=== PATIENT | female | born 1995 | race Caucasian/White ===

== ENCOUNTER → 2017-11-29 | Outpatient (CLI) | payer OTHER ==
[2017-11-29 16:08] LABS: FREE T4 1.04 NG/DL (0.76-1.46); THYROID STIMULATING HORMONE 0.651 uIU/ML (0.358-3.740)
[2017-12-07 14:15] LABS: CHROMOGRANIN A 2 nmol/L (0-5); DQ2(DQ1A 0501/0505,DQB1 02XX) Positive (.); DQ8(DQA1 03XX, DQB1 0302) Negative (.)
[2017-12-07 14:15] LABS: GASTRIN 27 pg/mL (0-115)
== END ==
LOC: M LAB 14:38
DX: K58.1 Irritable bowel syndrome with constipation (principal)
CPT/HCPCS: 84443

== ENCOUNTER 2018-03-07 22:42 | Emergency (ER) | payer OTHER ==
[2018-03-07] MEDS: ONDANSETRON 4 MG ORAL DISINTEGRATING TAB (Q0162 PER 1MG) PO (23:30)
[2018-03-07] MEDS: LORazepam 0.5 MG TAB PO (23:30)
== END 2018-03-08 00:36 | disposition home or self-care (01) ==
LOC: M ED 03-08 00:36
DX: R45.89 Other symptoms and signs involving emotional state (principal); T43.205A Adverse effect of unspecified antidepressants, initial encounter; F41.9 Anxiety disorder, unspecified
CPT/HCPCS: Q0162

== ENCOUNTER 2018-11-13 20:54 | Inpatient (IN) | payer OTHER ==
[2018-11-13] VITALS (9 sets, daily range): BP systolic 107–137; BP diastolic 58–73
[~2018-11-13] VITALS: Ht 162.6 cm; Wt 61.4 kg
[~2018-11-13 20:54] MED LIST: ATIV1TAB10 PO; LINZ290C; MECL-68 PO; PRENTAB45 PO; VENL150C43; ZOFR4TAB14 PO
[2018-11-13] MEDS ORDERED: LACTATED RINGER'S 1000 ML IV STA (21:28)
--- NOTE | 2018-11-13 21:45 | HPEPDOC ---
Obstetrical History & Physical General Date of Admission History of Present Illness 23 yo at 40+1 weeks gestation by 9+0 week US on [id number] presents to L&D with regular, painful contractions that have been worsening this evening. She had her membranes stripped in the office today. She denies any vaginal bleeding or leakage of fluid. She endorses excellent movement. complicated by significant iron deficiency anemia that have required IV iron transfusions. Chief Complaint: Contractions, term Information Provided By: Patient Age: 23 : 2 Term: 1 Pre-term: 0 Abortions: 0 Livin Care Care: Good Care Dating Final EDC: Nov 12, 2018 Final EDC for Daily Update: Nov 12, 2018 Final EDC by: 1st trimester (US) (9+0 week US on [id number] set KARIME of [id number]) 1st Trimester Date: Apr 09, 2018 Antepartum Course Diagnos(e)s Iron deficiency anemia requiring IV iron transfusions Migraines Anxiety Irritable bowel syndrome Past Medical History Past Obstetrical History : Past Obstetrical History: Multigravida ( in 2014 with pelvis proven to 7lbs 4oz) Type of Delivery: Spontaneous Vaginal Del. 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 Past Medical History Medical History Iron deficiency anemia Migraines Anxiety Irritable bowel syndrome Surgical History: Denies/None Family History Significant Family History: No pertinent family hx Social History Marital Status: Family situation: Spouse/partner home Psychosocial History: Anxiety * Smoker: non-smoker Alcohol: Denies Drugs: denies Imunizations Tdap status: current Influenza Status: current Allergies Coded Allergies: No Known Allergies (Unverified , 03/07/18) Medications Scheduled Vit No.129/Iron/Folic ( One Daily Tablet) 1 Tab Tab, 1 TAB PO DAILY Physical Examination Physical Examination GENERAL: Alert and oriented times three. ABDOMEN: Gravid and non-tender to touch. FETUS: Is vertex (VTX) by sterile vaginal examination (SVE) EXTREMITIES: No edema. Vital Signs/I&O Vital Signs Date Time Temp Pulse Resp B/P (MAP) Pulse Ox O2 Delivery O2 Flow Rate FiO2 11/13/18 21:17 98.9 88 116/63 (80) Laboratory Data Urine Culture: No Growth Pertinent Laboratoy Data Blood Type: A+ RBC Antibody Screen: Negative HIV: Negative Hepatitis B: Negative Hepatitis C: Unknown Rapid Plasma Reagin: Nonreactive Rubella: Immune Varicella: Nonreactive Chlamydia/Gonorrhea: Negative Group B Streptococcus: Negative Quad Screen Test: Unknown Cystic Fibrosis: Negative Glucose Tolerance Test: 108 Anatomy Ultrasound Placenta Location: Posterior Normal Anatomy: No (Initial bilateral pelviectasis resolved on repeat imaging. Persisent EIF.) Placenta Previa: No Steroid Therapy Steroid Therapy: No Vaginal Examination Dilation: 4 cm Effacement: 80% Station: -2 Cervical Consistency: Soft Cervical Position: Middle Presentation: Cephalic presentation Position: Vertex (occiput) Assessment Heart Rate (FHR): 125 Variability: Moderate Accelerations: Positive Decelerations: None Tocometer Contractions: Yes Frequency: regular Duration: greater than 60 seconds Strength: palpated as moderate Assessment/Plan Assessment 23 yo at 40+1 weeks gestation presented in labor. Plan Admit to L&D for expectant management of labor. Will augment as clinically indicated. Apply IV fluids. GBS negative. Patient may have epidural when and if desired. Clear liquid diet. Candidate for intermittent monitoring as desired as long as status remains reassuring. Anticipate . DO ZEYAD Post CHRISTOPHER J. DO Nov 13, 2018 21:45
[2018-11-13 21:58] LABS: BASO % 0.2 % (0.0-1.0); EOS % 0.2 % (0.0-3.0); HEMATOCRIT 32.1 % (36.0-47.0); HEMOGLOBIN 11.2 g/dl (12.0-15.5); LYMPH # 2.1 10^3/uL (1.5-6.5); LYMPH % 17.6 % (24.0-44.0); MEAN CORPUSCULAR HEMOGLOBIN 31.8 pg (27.0-33.0); MEAN CORPUSCULAR HGB CONC 34.9 g/dl (32.0-36.5); MEAN CORPUSCULAR VOLUME 91.2 fl (80.0-96.0); MONO # 0.9 10^3/uL (0.0-0.8); MONO % 7.5 % (0.0-5.0); NEUTROPHILS # 8.7 10^3/uL (1.8-7.7); NEUTROPHILS % 73.7 % (36.0-66.0); PLATELET COUNT, AUTOMATED 168 10^3/uL (150-450); RED BLOOD COUNT 3.52 10^6/uL (4.00-5.40); WHITE BLOOD COUNT 11.7 10^3/uL (4.0-10.0)
[2018-11-13] MEDS ORDERED: FENTANYL 2MCG/ML ROPIVACAINE 0.2% IN 0.9% NACL 100ML IVBAG As Ordered ONE (23:14)
[2018-11-13] MEDS ORDERED: EPIDURAL/PCA KEYS XX PRN (23:50)
[2018-11-13] MEDS ORDERED: REFRIGERATOR IV KEYS XX PRN (23:50)
[2018-11-13] MEDS ORDERED: ONDANSETRON 4MG/2ML VIAL (J2405) IV PRN (23:50)
[2018-11-13] MEDS ORDERED: NALOXONE INJ 0.4 MG/1 ML VIAL (J2310) IV PRN (23:50)
[2018-11-13] MEDS: FENTANYL/ROPIVACAINE/NACL BAG 100 ML EPIDURAL SCH (23:50)
[2018-11-13] MEDS ORDERED: ePHEDrine SULFATE 25 MG/5 ML(5MG/ML) SYRINGE IV PRN (23:50)
[2018-11-13] MEDS ORDERED: EPIDURAL COMMENT XX SCH (23:50)
[2018-11-13] MEDS ORDERED: LACTATED RINGER'S 1000 ML IV PRN (23:50)
[2018-11-13] MEDS ORDERED: diphenhydrAMINE INJ 50MG/ML VIAL (J1200) IV PRN (23:50)
[2018-11-14] VITALS (21 sets, daily range): BP systolic 91–138; BP diastolic 48–81
[2018-11-14] MEDS ORDERED: ONDANSETRON 4MG/2ML VIAL (J2405) As Ordered ONE (00:33)
--- NOTE | 2018-11-14 03:44 | IPNPDOC ---
Text Note Date of Service The patient was seen on 11/14/18. NOTE Called RN for assessment of progress. Patient comfortable with epidural in place. FHR review: Cat I with moderate variability, +accels, no decels. Contractions Q2mins and palpating strong. Patient soo quite well on her own power. Will continue expectant management. At next exam will consider AROM. DO Rachid VS,Carlo, I+O VS, Jonnye, I+O Laboratory Tests 11/13/18 21:46 Red Blood Count 3.52 L, Mean Corpuscular Volume 91.2, Mean Corpuscular Hemoglobin 31.8, Mean Corpuscular Hemoglobin Concent 34.9, Red Cell Distribution Width 13.2, Neutrophils (%) (Auto) 73.7 H, Lymphocytes (%) (Auto) 17.6 L, Monocytes (%) (Auto) 7.5 H, Eosinophils (%) (Auto) 0.2, Basophils (%) (Auto) 0.2, Neutrophils # (Auto) 8.7 H, Lymphocytes # (Auto) 2.1, Monocytes # (Auto) 0.9 H, Eosinophils # (Auto) 0.0, Basophils # (Auto) 0.0 Vital Signs Date Time Temp Pulse Resp B/P (MAP) Pulse Ox O2 Delivery O2 Flow Rate FiO2 11/14/18 00:47 98.7 100 118/63 (81) ALMA JEFFERS DO Nov 14, 2018 03:44
[2018-11-14] MEDS: FENTANYL/ROPIVACAINE/NACL BAG 100 ML EPIDURAL SCH (06:07)
--- NOTE | 2018-11-14 06:32 | IPNPDOC ---
Text Note Date of Service The patient was seen on 11/14/18. NOTE Presented to room to assess progress. Ms. Quiñones continues to be comfortable with her epidural. Cervix: 9/C/0. AROM performed productive of meconium stained fluid. FHR remains Cat I. Patient progressing well. I anticipate beginning of 2nd stage shortly. DO Rachid VS,Carlo, I+O VS, Carlo, I+O Laboratory Tests 11/13/18 21:46 Red Blood Count 3.52 L, Mean Corpuscular Volume 91.2, Mean Corpuscular Hemoglobin 31.8, Mean Corpuscular Hemoglobin Concent 34.9, Red Cell Distribution Width 13.2, Neutrophils (%) (Auto) 73.7 H, Lymphocytes (%) (Auto) 17.6 L, Monocytes (%) (Auto) 7.5 H, Eosinophils (%) (Auto) 0.2, Basophils (%) (Auto) 0.2, Neutrophils # (Auto) 8.7 H, Lymphocytes # (Auto) 2.1, Monocytes # (Auto) 0.9 H, Eosinophils # (Auto) 0.0, Basophils # (Auto) 0.0 Vital Signs Date Time Temp Pulse Resp B/P (MAP) Pulse Ox O2 Delivery O2 Flow Rate FiO2 11/14/18 05:20 98.7 82 103/52 (69) ALMA JEFFERS DO Nov 14, 2018 06:32
[2018-11-14] MEDS ORDERED: OXYTOCIN 30 UNITS IN 0.9% NaCl 500ML IV BAG (J2590) As Ordered ONE (06:37)
--- NOTE | 2018-11-14 07:43 | NUR ---
0730 am evaluation active labor srom [id number] am meconium light epidural effective pelvic rot zero station no visible meconium reviewed past 4 th degree tear would like to avoid repeat 4 th degree discussed pushing plan
[2018-11-14] MEDS ORDERED: OXYTOCIN DRIP 30 UNITS in APPROPRIATE DILUENT 1 EA IV SCH (08:36)
[2018-11-14 08:44] LABS: CORD GAS ABE A -1.8; CORD GAS HCO3 A 25.2 MEQ/L; CORD GAS O2 SAT A 26.9 %; CORD GAS PCO2 A 51.5 mmHg; CORD GAS PH A 7.307 UNITS; CORD GAS PO2 A 14.9 mmHg; CORD GAS SBC A 21.3 MEQ/L; CORD GAS TCO2 A 26.8 MEQ/L
[2018-11-14 08:46] LABS: CORD GAS ABE V -1.8; CORD GAS O2 SAT V 72.3 %; CORD GAS PCO2 V 39.2 mmHg; CORD GAS PH V 7.386 UNITS; CORD GAS PO2 V 33.6 mmHg; CORD GAS SBC V 22.4 MEQ/L; CORD GAS TCO2 V 24.2 MEQ/L
[2018-11-14] MEDS ORDERED: METHYLERGONOVINE MALEATE 0.2 MG TAB PO PRN (09:00)
[2018-11-14] MEDS ORDERED: IBUPROFEN 800 MG TAB PO PRN (09:00)
[2018-11-14] MEDS ORDERED: ANUSOL HC CREAM 30GM TOP PRN (09:00)
[2018-11-14] MEDS ORDERED: ACETAMINOPHEN TAB 650MG DOSE (2X325MG) PO PRN (09:00)
[2018-11-14] MEDS ORDERED: ACETAMINOPHEN 500 MG TAB PO PRN (09:00)
[2018-11-14] MEDS ORDERED: PRENATAL VITAMINS CHEWABLE TABLET PO SCH (09:00)
[2018-11-14] MEDS ORDERED: MEASLES,MUMPS,RUBELLA VACCINE INJ (MMR-II) (90707) SC SCH (09:00)
[2018-11-14] MEDS ORDERED: MOM 30ML SUSPENSION UDC PO PRN (09:00)
[2018-11-14] MEDS ORDERED: DIBUCAINE 1% OINTMENT 30GM TOP PRN (09:00)
[2018-11-14] MEDS ORDERED: DOCUSATE SODIUM 100 MG CAP PO PRN (09:00)
[2018-11-14] MEDS ORDERED: RHOGAM 300 MCG (1500 IU) INJ (J2790) IM SCH (09:00)
[2018-11-14] MEDS ORDERED: OXYTOCIN INJ 10 UNITS/ML VIAL (J2590) IV ONE (09:00)
[2018-11-14] MEDS: IBUPROFEN 600 MG TAB PO PRN (09:19)
--- NOTE | 2018-11-14 18:01 | DN ---
DATE: 11/14/2018 This lady is a 23-year-old 2 admitted in spontaneous labor, had a spontaneous rupture of membranes 0630 a.m. Meconium stained liquid, thin. With epidural in place, two pushes, delivered a live male weighing 7 pounds, 11 ounces, 3460 grams, scores of 9 and 9 at one and five minutes respectively. Placenta delivered spontaneously thereafter. Meconium-stained membranes. Multiple calcifications were noted. Three-vessel cord, membranes and tissues intact. Perineum was intact. Sphincter was intact. Anterior, posterior and lateral robles were good. The uterus contracted well down on Pitocin. The patient and baby tolerated the procedure well. Arterial and venous pH were ordered.
[2018-11-15] MEDS: IBUPROFEN 600 MG TAB PO PRN ×2 (02:05→08:23)
[2018-11-15 06:12] VITALS: BP 105/62
[2018-11-15 07:15] LABS: HEMATOCRIT 34.8 % (36.0-47.0); HEMOGLOBIN 11.7 g/dl (12.0-15.5); MEAN CORPUSCULAR HEMOGLOBIN 31.2 pg (27.0-33.0); MEAN CORPUSCULAR HGB CONC 33.6 g/dl (32.0-36.5); MEAN CORPUSCULAR VOLUME 92.8 fl (80.0-96.0); PLATELET COUNT, AUTOMATED 160 10^3/uL (150-450); RED BLOOD COUNT 3.75 10^6/uL (4.00-5.40); WHITE BLOOD COUNT 12.3 10^3/uL (4.0-10.0)
[2018-11-15] MEDS ORDERED: DIBU10OI TOP (07:22)
[2018-11-15] MEDS ORDERED: MOM30SS2 PO (07:22)
[2018-11-15] MEDS ORDERED: COLA100C5 PO (07:22)
[2018-11-15] MEDS ORDERED: PRENCHW PO (07:22)
[2018-11-15] MEDS ORDERED: ACET-683 PO (07:22)
[2018-11-15] MEDS ORDERED: PROC1CRE5 TOP (07:22)
[2018-11-15] MEDS ORDERED: IBUP80TA PO (07:22)
--- NOTE | 2018-11-15 19:24 | DSES ---
DATE OF ADMISSION: 11/13/2018 DATE OF DISCHARGE: 11/15/2018 This a 23-year-old 2, now para 2, admitted in contractions at 41 weeks gestation, spontaneous vaginal delivery with epidural in place, male. 7 pounds 10 ounces, 3460 grams, scores of 9 and 9 at one and five minutes respectively. Arterial pH 7.30, base excess -1.8, venous pH 7.38, base excess -1.8. Admitting hemoglobin was 11.2, hematocrit 32.1 and platelets 168. Discharge hemoglobin 11.7, hematocrit 34.8 and platelets 160. We discussed phlebitis, cystitis, mastitis, endometritis, cellulitis, diet, exercise, pain management, perineal, breast and wound care. Her ongoing issues are anemia, irritable bowel syndrome and migraines. She was dispensed with medications including MiraLax and Colace for her irritable bowel syndrome. 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 In summary, we have a term gestation, delivered a live male infant. Her discharge blood pressure was 105/62, respirations 18, pulse 80, temperature 98.2.
== END 2018-11-15 12:40 | disposition home or self-care (01) | DRG 807 ==
LOC: M LDO 20:54 → M LDI 21:37 → M OBS 11-14 11:09
PROVIDERS: ADMIT Obstetrics & Gynecology; ATTEND Obstetrics & Gynecology
PROC: 10E0XZZ Delivery of Products of Conception, External Approach (ICD-10-PCS; principal; 2018-11-14)
DX: O99.02 Anemia complicating childbirth (principal); Z37.0 Single live birth; O48.0 Post-term pregnancy; Z3A.40 40 weeks gestation of pregnancy; D50.9 Iron deficiency anemia, unspecified; O99.62 Diseases of the digestive system complicating childbirth; K58.9 Irritable bowel syndrome, unspecified

== ENCOUNTER 2019-05-14 14:22 | Emergency (ER) | payer OTHER ==
[~2019-05-14] VITALS: Ht 162.6 cm; Wt 52.0 kg
[~2019-05-14 14:22] MED LIST changes: +ACET-683 PO; +COLA100C5 PO; +DIBU10OI TOP; +IBUP80TA PO; -MECL-68 PO; +MECL1TAB31 PO; +MOM30SS2 PO; +PRENCHW PO; +PROC1CRE5 TOP
[2019-05-14] MEDS ORDERED: OLAN5TAB PO (14:33)
[2019-05-14 15:48] LABS: HEMATOCRIT 40.7 % (36.0-47.0); HEMOGLOBIN 13.4 g/dl (12.0-15.5); MEAN CORPUSCULAR HEMOGLOBIN 29.3 pg (27.0-33.0); MEAN CORPUSCULAR HGB CONC 32.9 g/dl (32.0-36.5); MEAN CORPUSCULAR VOLUME 88.9 fl (80.0-96.0); PLATELET COUNT, AUTOMATED 204 10^3/uL (150-450); RED BLOOD COUNT 4.58 10^6/uL (4.00-5.40); WHITE BLOOD COUNT 7.9 10^3/uL (4.0-10.0)
[2019-05-14 16:02] LABS: AMPHETAMINES LEVEL URINE NEGATIVE (NEGATIVE); BARBITURATES URINE NEGATIVE (NEGATIVE); BENZODIAZEPINES URINE NEGATIVE (NEGATIVE); CANNABINOIDS URINE NEGATIVE (NEGATIVE); COCAINE METABOLITE URINE NEGATIVE (NEGATIVE); METHADONE URINE NEGATIVE (NEGATIVE); OPIATES URINE NEGATIVE (NEGATIVE); PHENCYCLIDINE URINE NEGATIVE (NEGATIVE)
[2019-05-14 16:19] LABS: ACETAMINOPHEN LEVEL < 2.0 UG/ML (10.0-30.0); ALBUMIN 4.6 GM/DL (3.2-5.2); ALT/SGPT 22 U/L (12-78); BILIRUBIN,DIRECT 0.1 MG/DL (0.0-0.2); BILIRUBIN,TOTAL 0.4 MG/DL (0.2-1.0); BLOOD UREA NITROGEN 18 MG/DL (7-18); CALCIUM LEVEL 8.5 MG/DL (8.5-10.1); CARBON DIOXIDE LEVEL 27 MEQ/L (21-32); CHLORIDE LEVEL 108 MEQ/L (98-107); CREATININE FOR GFR 0.61 MG/DL (0.55-1.30); ETHYL ALCOHOL (ETHANOL) 0.003 % (0.000-0.010); GLOMERULAR FILTRATION RATE > 60.0 (>60); GLUCOSE, FASTING 87 MG/DL (70-100); POTASSIUM SERUM 3.9 MEQ/L (3.5-5.1); SALICYLATE LEVEL < 1.7 MG/DL (5.0-30.0); SODIUM LEVEL 142 MEQ/L (136-145)
[2019-05-14 16:24] LABS: HCG, SERUM QUALITATIVE NEGATIVE (NEGATIVE)
[2019-05-14 18:30] VITALS: BP 105/62
== END 2019-05-14 18:32 | disposition home or self-care (01) ==
LOC: M ED 14:22
DX: F33.9 Major depressive disorder, recurrent, unspecified (principal); F41.1 Generalized anxiety disorder; Z79.84 Long term (current) use of oral hypoglycemic drugs
CPT/HCPCS: 36415; 80048; 80076; 80307; 84443; 84703; 85027; 99284; G0480

== ENCOUNTER 2019-10-10 10:36 | Emergency (ER) | payer OTHER ==
[~2019-10-10] VITALS: Ht 162.6 cm; Wt 47.3 kg
[~2019-10-10 10:36] MED LIST changes: +OLAN5TAB PO
[2019-10-10] MEDS ORDERED: VENL75CA47 PO (10:41)
[2019-10-10] MEDS ORDERED: TRAZ-252 PO (10:41)
[2019-10-10 11:51] LABS: HEMATOCRIT 33.6 % (36.0-47.0); HEMOGLOBIN 11.8 g/dl (12.0-15.5); MEAN CORPUSCULAR HEMOGLOBIN 30.3 pg (27.0-33.0); MEAN CORPUSCULAR HGB CONC 35.1 g/dl (32.0-36.5); MEAN CORPUSCULAR VOLUME 86.2 fl (80.0-96.0); PLATELET COUNT, AUTOMATED 223 10^3/uL (150-450); WHITE BLOOD COUNT 11.5 10^3/uL (4.0-10.0)
[2019-10-10 12:16] LABS: BLOOD UREA NITROGEN 16 MG/DL (7-18); CALCIUM LEVEL 8.6 MG/DL (8.5-10.1); CARBON DIOXIDE LEVEL 23 MEQ/L (21-32); CHLORIDE LEVEL 106 MEQ/L (98-107); CREATININE FOR GFR 0.71 MG/DL (0.55-1.30); GLOMERULAR FILTRATION RATE > 60.0 (>60); GLUCOSE, FASTING 94 MG/DL (70-100); MAGNESIUM LEVEL 1.8 MG/DL (1.8-2.4); SODIUM LEVEL 138 MEQ/L (136-145)
[2019-10-10] MEDS ORDERED: ACETAMINOPHEN TAB 650MG DOSE (2X325MG) PO ONE (12:30)
[2019-10-10] MEDS ORDERED: NS 1,000 ML IV ONE (12:30)
[2019-10-10 12:46] LABS: ALBUMIN 4.1 GM/DL (3.2-5.2); ALT/SGPT 24 U/L (12-78); BILIRUBIN,DIRECT 0.3 MG/DL (0.0-0.2); BILIRUBIN,TOTAL 1.3 MG/DL (0.2-1.0); CK-MB VALUE MASS < 1.0 NG/ML (<3.6); CPK CREATINE PHOSPHOKINASE 79 U/L (26-192); FREE T4 1.55 NG/DL (0.76-1.46); LIPASE 76 U/L (73-393); MB/CK RELATIVE INDEX 1.27 (< OR =4); THYROID STIMULATING HORMONE 0.839 uIU/ML (0.358-3.740); TOTAL PROTEIN 6.8 GM/DL (6.4-8.2); TROPONIN I < 0.02 NG/ML (< 0.10)
[2019-10-10] MEDS ORDERED: POTASSIUM CHLORIDE 10 MEQ SR TABLET PO ONE (13:00)
[2019-10-10 13:13] LABS: INR 1.12; PROTHROMBIN TIME 14.1 SECONDS (11.8-14.0)
[2019-10-10 13:28] LABS: HCG, SERUM QUALITATIVE NEGATIVE (NEGATIVE)
[2019-10-10] MEDS ORDERED: ONDANSETRON 4MG/2ML VIAL IV ONE (13:30)
[2019-10-10] MEDS ORDERED: ISOVUE-370 76% 100ML VIAL As Ordered ONE ×2 (13:48→14:56)
--- NOTE | 2019-10-10 13:51 | REP ---
Bilateral lower extremity Duplex Doppler venous ultrasound: Real time compression and duplex Doppler interrogation of the bilateral lower extremity deep venous system is performed. Bilaterally, the common femoral, superficial femoral and popliteal veins are fully compressible with transducer pressure and demonstrate normal spontaneous and phasic flow, without evidence of deep venous thrombosis. Impression: No evidence of deep venous thrombosis of the bilateral lower extremity femoral popliteal venous system. Electronically Signed by Chuckie España MD 10/10/2019 01:42 P
[2019-10-10] MEDS ORDERED: IBUPROFEN 600MG TAB PO ONE (14:15)
[2019-10-10] MEDS ORDERED: VENLAFAXINE **XR** 75MG CAPSULE PO ONE (15:45)
[2019-10-10] MEDS ORDERED: VENLAFAXINE 37.5 MG TAB PO ONE (15:45)
[2019-10-10] MEDS ORDERED: KEFL500C17 PO (16:23)
[2019-10-10 16:30] VITALS: BP 113/66
[2019-10-10] MEDS ORDERED: CEPHALEXIN 500 MG CAP PO ONE (16:30)
--- NOTE | 2019-10-10 16:58 | REP ---
CHEST: Single view. There is no evidence of acute infiltrate. No pleural effusion is seen. The heart is normal in size. The mediastinal silhouette is unremarkable. The visualized osseous structures are intact. IMPRESSION: No acute pulmonary disease. Electronically Signed by Chuckie España MD 10/13/2019 10:05 P
--- NOTE | 2019-10-10 21:10 | ECGEPIP ---
[facility] - ED Test Date: 2019-10-10 Pat Name: ELMIRA RUTHERFORD Department: Room: - Gender: Female Graphics Coordinator: jfvannessa : 1995 Requested By: BARBARA Mendoza Order Number: [id number] Reading MD: Stacy Reed Measurements Intervals [place] Rate: 107 P: 64 CT: 108 QRS: 76 QRSD: 93 T: 69 QT: 333 QTc: 444 Interpretive Statements SINUS TACHYCARDIA WITH SHORT CT INTERVAL ABNORMAL RHYTHM ECG NO PRIOR Electronically Signed on 10-10-2019 21:10:17 EDT by Stacy Reed
--- NOTE | 2019-10-11 08:34 | REP ---
REASON: Dyspnea and chest pain . COMPARISON: None. CONTRAST: 100 mL Isovue 370. There is excellent visualization of the pulmonary arterial vasculature. There are no focal filling defects present that would be considered consistent with acute pulmonary emboli. There are no pleural or pericardial effusions. There is no mediastinal or hilar adenopathy. The imaged upper abdomen and imaged osseous structures are within normal limits. Evaluation of the lung parish show no abnormal nodules, masses or opacities. IMPRESSION: CT findings are within normal limits. Electronically Signed by Chuck Calvo DO 10/13/2019 10:53 A
--- NOTE | 2019-10-11 08:37 | REP ---
REASON FOR EXAM: Lower abdominal pain. There are no priors for comparison. CONTRAST: 100 mL Isovue 370. The liver, gallbladder, spleen, pancreas, and adrenal glands, and kidneys are within normal limits. The abdominal aorta and para-aortic regions are within normal limits. The bowel loops and their mesenteries are within normal limits, although noncontrast opacified. No free fluid or free air is seen in the abdomen. There is a trace amount of free pelvic fluid, probably physiologic. There is no evidence of an intra-abdominal or intrapelvic mass or adenopathy. Bone window technique through the examination shows the osseous structures to be within normal limits. IMPRESSION: CT findings are within normal limits. Electronically Signed by Chuck Calvo DO 10/13/2019 10:53 A
== END 2019-10-10 16:50 | disposition home or self-care (01) ==
LOC: M ED 10:36
DX: N61.0 Mastitis without abscess (principal); F33.9 Major depressive disorder, recurrent, unspecified
CPT/HCPCS: 71045; 71275; 74177; 80048; 80076; 81001; 82550; 82553; 83690; 83735; 84439; 84443; 84484; 84703; 85027; 85610; 85730; 93005; 93041; 93970; 94760; 96361; 96374; 99285; J2405; Q9967